=== PATIENT | male | born 1960 | race Caucasian/White ===

== ENCOUNTER 2022-09-25 01:53 | Day surgery (SDC) | payer BC, SELFPAY ==
[2022-09-18 08:31] VITALS: BMI 27.0
[2022-09-25 06:56] VITALS: BP 149/88; PULSE 80; RESP 18; TEMP 36.1; O2SAT 96; BMI 27.3
[2022-09-25] MEDS: LACTATED RINGERS 1,000 ML 150 ML IV CONT (07:06)
--- NOTE | 2022-09-25 07:31 | P.PNAN_ITS ---
Anes - Initial Pre Proc Eval Procedure: Operation Date: 09/25/22 08:00 Proposed Procedures p Screening Colonoscopy - Mann Murrieta MD Date/Time: 09/25/22 07:31 Surgeon: Mann Murrieta MD Pre Op Diagnosis: Neoplasm Screening Patient Data Age: 62 Gender: M Height: 1.85 m Weight: 94.1 kg Last Vital Signs Temp 97 F L 09/25/22 06:56 Pulse 80 09/25/22 06:56 Resp 18 09/25/22 06:56 BP 149/88 H 09/25/22 06:56 Pulse Ox 96 09/25/22 06:56 O2 Del Method Room Air 09/25/22 06:56 Allergies Allergy/AdvReac Type Severity Reaction Status Date / Time penicillin G Allergy Intermediate GROWTH ON Verified 09/18/22 08:27 TONGUE Penicillins Allergy Unknown white Verified 09/18/22 08:27 coating on tongue Home Medications Medication Instructions Recorded Confirmed Type atorvastatin 10 mg tablet See Rx Instructions .Route 04/16/22 09/18/22 Rx .COMPLEX #90 tabs metoprolol succinate 25 mg See Rx Instructions .Route 04/16/22 09/18/22 Rx tablet,extended release 24 hr .COMPLEX #90 tabs fluticasone propionate 50 See Rx Instructions .Route 08/04/22 09/18/22 Rx mcg/actuation nasal .COMPLEX #16 grams spray,suspension sodium,potassium,mag sulfates 17.5 See Rx Instructions PO .COMPLEX 09/16/22 Rx gram-3.13 gram-1.6 gram oral soln #354 mL (Suprep Bowel Prep Kit) alendronate 70 mg-cholecalciferol 70 tablet PO 09/18/22 History (vitamin D3) 2,800 unit tablet Patient hx anesthesia problems: none Family hx anesthesia problems: none Results Review: All pre-operative results and documents have been reviewed as part of the pre- operative evaluation. [facility] Surgical History Surgical History History of sinus surgery (~2015) Family History Family History Father Hypertension Family history of cardiovascular disease Family history of cardiac disorder Family history of congestive heart failure Social History Social History (Reviewed 10/13/22 @ 09:35 by Isamar Dominique [facility] Smoking status: Never smoker Alcohol intake: never Substance use: never Substance use type: marijuana Living arrangements: with family Spiritual care concerns: No Anes - Eval Final PreProcedure Day of Procedure 09/25/22 07:31 Patient weight: normal Heart: regular rate and rhythm Lungs: clear to auscultation Airway: Mallampati scale class II Neurological: alert and oriented Last oral intake: >/= 8 hours ASA classification: II Emergent: no Anesthetic plan: proceed Anesthesia type and monitoring: general GIVS and standard monitoring Results Review: All pre-operative results and documents have been reviewed as part of the pre- operative evaluation. Informed Consent: The patient's anesthetic plan and its attendant risks and benefits were discussed with the patient/family/POA. Questions were solicited and answers provided to the satisfaction of the patient/family/POA.
--- NOTE | 2022-09-25 07:46 | PM.HPGS ---
History of Present Illness History of Present Illness Consent: Risks, benefits, and alternatives have been discussed and questions answered. Patient agrees to proceed with procedure. Chief complaint: Neoplasm Screening Narrative: Tavo Nix is a 62 year old male Presents for screening colonoscopy. Patient's current weight appetite and bowel movements are normal. Patient denies abdominal pain. He has had no bleeding. Family history is noncontributory. Last exam 10 years ago was unremarkable. Review of Systems Review of Systems: Review of systems noncontributory. [facility] Surgical History Surgical History History of sinus surgery (~2016) Family History Family History Father Hypertension Family history of cardiovascular disease Family history of cardiac disorder Family history of congestive heart failure Social History Social History Smoking status: Never smoker Alcohol intake: never Substance use: never Substance use type: marijuana Living arrangements: with family Spiritual care concerns: No Meds Home Medications and Allergies Home Medications Medication Instructions Recorded Confirmed Type atorvastatin 10 mg tablet See Rx Instructions .Route 04/16/22 09/18/22 Rx .COMPLEX #90 tabs metoprolol succinate 25 mg See Rx Instructions .Route 04/16/22 09/18/22 Rx tablet,extended release 24 hr .COMPLEX #90 tabs fluticasone propionate 50 See Rx Instructions .Route 08/04/22 09/18/22 Rx mcg/actuation nasal .COMPLEX #16 grams spray,suspension sodium,potassium,mag sulfates 17.5 See Rx Instructions PO .COMPLEX 09/16/22 Rx gram-3.13 gram-1.6 gram oral soln #354 mL (Suprep Bowel Prep Kit) alendronate 70 mg-cholecalciferol 70 tablet PO 09/18/22 History (vitamin D3) 2,800 unit tablet Allergies Allergy/AdvReac Type Severity Reaction Status Date / Time penicillin G Allergy Intermediate GROWTH ON Verified 09/18/22 08:27 TONGUE Penicillins Allergy Unknown white Verified 09/18/22 08:27 coating on tongue Vital Signs Vital Signs - 24 hr 09/25/22 06:56 Temperature 97 F L Pulse Rate 80 Respiratory Rate 18 Blood Pressure 149/88 H Pulse Oximetry 96 Oxygen Delivery Room Air Exam Narrative: Physical exam reveals patient be alert. Vital signs stable. HEENT exam is unremarkable. Patient is anicteric. Lungs are clear to auscultation and percussion. Heart is without murmur or extra sounds. Abdomen bowel sounds are present soft nontender with no organomegaly. Digital external rectal exam is normal. Assessment and Plan Assessment and plan (1) Screening for colon cancer: Code(s): Z12.11 - Encounter for screening for malignant neoplasm of colon Status: Acute Assessment and Plan: Patient presents today for screening colonoscopy. Appears to be at average risk for colon polyps. Further recommendations will be given after endoscopy.
[2022-09-25 08:15] VITALS: BP 117/78; PULSE 68; RESP 15; O2SAT 95
[2022-09-25 08:25] VITALS: BP 118/74; PULSE 63; RESP 13; O2SAT 95
[2022-09-25 08:35] VITALS: BP 124/79; PULSE 68; RESP 19; O2SAT 97
== END 2022-09-25 08:50 | disposition home or self-care (01) ==
PROVIDERS: PCP Family Medicine; Visit Provider Internal Medicine Gastroenterology
PROC: 0DJD8ZZ Inspection of Lower Intestinal Tract, Via Natural or Artificial Opening Endoscopic (ICD-10-PCS; CPT 45378; principal; 2022-09-25 08:00)
DX: Z12.11 Encounter for screening for malignant neoplasm of colon (principal)
CPT/HCPCS: 45378; J2704; J7120

== ENCOUNTER 2024-02-19 08:03 | Emergency (ER) | payer MEDICARE, SELFPAY ==
[2024-02-19 08:11] VITALS: BP 156/92; PULSE 68; RESP 16; TEMP 36.4; O2SAT 97
--- NOTE | 2024-02-19 08:18 | ED.GENADULT ---
HPI - General Adult General Chief complaint: Ear Stated complaint: Ear Pain Source: patient, RN notes reviewed and old records reviewed Mode of arrival: ambulatory Limitations: no limitations History of Present Illness HPI narrative: 63-year-old male patient presents to [facility] complaint of right ear pain that started 2 days ago. Patient states also had less of hearing. Patient states was treated 3 weeks ago for sinusitis and right ear infection with Zithromax and prednisone. Patient states symptoms did improve but returned. Related Data Home Medications Medication Instructions Recorded Confirmed atorvastatin 10 mg tablet 10 mg PO DAILY 01/17/24 02/19/24 metoprolol succinate 25 mg 25 mg PO DAILY 01/17/24 02/19/24 tablet,extended release 24 hr Allergies Allergy/AdvReac Type Severity Reaction Status Date / Time penicillin G Allergy Intermediate GROWTH ON Verified 02/19/24 08:13 TONGUE Penicillins Allergy Unknown white Verified 02/19/24 08:13 coating on tongue Review of Systems Constitutional: Constitutional: Reports no additional constitutional complaints, Denies body ache(s), Denies chills, Denies fatigue, Denies fever(s) and Denies headache(s) Eyes: Eyes: Reports no additional eye complaints and Denies blurry vision ENT: Reports system reviewed and no additional complaints, except as documented, Denies vertigo, Denies dizziness, Denies ear discharge, Reports otalgia, Denies facial pain, Denies headache(s), Denies nasal congestion, Denies nasal discharge, Denies sinus pain, Denies sinus pressure and Denies sore throat Cardiovascular: Cardiovascular: Reports no additional cardiovascular complaints, Denies chest pain, Denies chest pain at rest, Denies rapid heart rate and Denies dyspnea Respiratory: Respiratory: Reports no additional respiratory complaints, Denies chest congestion, Denies cough, Denies pain on inspiration, Denies pain with cough and Denies dyspnea Gastrointestinal: Gastrointestinal: Denies abdominal pain, Denies diarrhea, Denies nausea and Denies vomiting Integumentary/Breasts: Skin/Breast: Denies rash Neurologic: Reports system reviewed and no additional complaints, except as documented, Denies vertigo, Denies dizziness and Denies headache(s) Endocrine: Endocrine: Denies fatigue PMFSH Surgical History Surgical History History of sinus surgery (~2016) Family History Family History Father Hypertension Family history of cardiovascular disease Family history of cardiac disorder Family history of congestive heart failure Social History Social History Smoking status: Never smoker Alcohol intake: never Substance use: never Substance use type: does not use Lack of Transportation: No Lack of Food: Never True Current Housing: I Have Housing Concerned About Future Housing: Decline to Answer Difficulty Paying Gas/Electric Bills: Decline to Answer Difficulty Paying for Meds: Decline to Answer Currently Unemployed: Decline to Answer Education: Decline to Answer Difficulty w/ Childcare or Family Care: Decline to Answer Living arrangements: with family Spiritual care concerns: No Comments At the time of my signature, I reviewed and agree with the nursing past medical, surgical, social, and family history. There is no relevant family history pertinent to the patient complaint. Exam Const: General: cooperative, healthy appearing, no acute distress and well nourished Nutritional Appearance: well nourished Orientation/consciousness: patient oriented x3 Limitations: no limitations HENMT: Head: normal to inspection and normocephalic Ears: external ears normal, TM normal on the left, EAC's normal, mastoids normal and TM abnormal bulging on the right and erythematous on the right Face/N
== END 2024-02-19 08:28 | disposition home or self-care (01) ==
PROVIDERS: Emergency Provider Registered Nurse; PCP Family Medicine
DX: H66.91 Otitis media, unspecified, right ear (principal)
CPT/HCPCS: 99213; G0463

== ENCOUNTER 2024-06-15 16:06 | Outpatient (CLI) | payer MEDICARE, SELFPAY ==
--- NOTE | ~2024-06-15 | XR_ITS ---
XR ankle RT min 3V DATE: 06/15/2024 16:24 INDICATION: Twisting injury to right ankle and foot TECHNIQUE: 4 views COMPARISON: None FINDINGS: There is generalized soft tissue swelling of the right ankle. No fracture or dislocation of the ankle or disruption of the ankle mortise is detected. Slight plantar calcaneal enthesopathy. IMPRESSION: Generalized soft tissue swelling; no ankle fracture or dislocation or disruption of the a nkle mortise Reviewed, dictated and finalized at location J. IMPRESSION: Generalized soft tissue swelling; no ankle fracture or dislocation or disruption of the ankle mortise
--- NOTE | ~2024-06-15 | XR_ITS ---
XR foot RT min 3V DATE: 06/15/2024 16:24 INDICATION: Right foot pain TECHNIQUE: 4 views COMPARISON: None FINDINGS: Ankle soft tissue swelling. Mild osteoarthritis of the first metatarsophalangeal joint. Slight plantar calcaneal enthesopathy. No fracture or dislocation, periosteal reaction or bone destruction is detected. IMPRESSION: Ankle soft tissue swelling No fracture or dislocation of the right foot Slight plantar calcaneal enthesopathy Mild osteoarthritis of first MTP joint Reviewed, dictated and finalized at location J.
== END 2024-06-15 16:07 ==
PROVIDERS: PCP Family Medicine; Visit Provider Nurse Practitioner
DX: M19.071 Primary osteoarthritis, right ankle and foot (principal)
CPT/HCPCS: 73610; 73630

== ENCOUNTER 2025-01-16 08:48 | Outpatient (CLI) | payer MEDICARE, SELFPAY ==
--- NOTE | ~2025-01-16 | US_ITS ---
EXAM: ABDOMEN ULTRASOUND HISTORY: R17 - Unspecified jaundice COMPARISON: None FINDINGS: LIVER: The liver is unremarkable in echogenicity and size measuring 16 cm in longitudinal dimension. The portal vein is patent demonstrating hepatopedal flow. The contour of the liver surface is smooth GALLBLADDER: No stones are identified within the gallbladder, which is otherwise unremarkable. No gallbladder wall thickening or pericholecystic fluid. BILE DUCTS: Common bile duct measures 3.1mm. No intrahepatic biliary ductal dilatation is appreciated on static imaging. PANCREAS: Limited evaluation of the pancreas secondary to overlying bowel gas IMPRESSION: Unremarkable sonographic evaluation of the liver, as detailed above. Limited evaluation of the pancreas secondary to overlying bowel gas. Reviewed, dictated and finalized at location A. OR LPN
--- NOTE | ~2025-01-16 | US_ITS ---
EXAM: Focused ultrasound examination of the soft tissues of the right groin EXAM: Focused ultrasound examination of the soft tissues of the left groin HISTORY: R19.09 - Other intra-abdominal and pelvic swelling, mass ... TECHNIQUE: Sonographic evaluation of the soft tissues of the bilateral groins were performed assessin g grayscale appearance and color Doppler flow. COMPARISON: None. FINDINGS: Sonographic evaluation of the soft tissues of the right groin demonstrate a 23mm fascial defect throu gh which echogenic tissue extrudes during Valsalva. Hernia sac was easily reducible. Sonographic evaluation of the soft tissues of the left groin demonstrate a 30mm fascial defect throug h which echogenic tissue extrudes during Valsalva. Hernia sac was easily reducible. Sonographic evaluation of the remainder of the soft tissues of the bilateral groins demonstrate benig n fibrofatty and fibromuscular elements without a cystic or solid lesion of concern. IMPRESSION: Bilateral inguinal hernias corresponding to the area of palpable concern, easily reducible, as detail ed above. Reviewed, dictated and finalized at location A. ING CREELER IMPRESSION: Bilateral inguinal hernias corresponding to the area of palpable concern, easil y reducible, as detailed above.
== END 2025-01-16 08:49 | disposition home or self-care (01) ==
LOC: GOSHIMG 08:48
PROVIDERS: PCP Nurse Practitioner; Visit Provider Nurse Practitioner
DX: R19.09 Other intra-abdominal and pelvic swelling, mass and lump (principal); R17 Unspecified jaundice; K40.20 Bilateral inguinal hernia, without obstruction or gangrene, not specified as recurrent
CPT/HCPCS: 76705; 76882

== ENCOUNTER 2025-01-16 10:48 | Emergency (ER) | payer MEDICARE, SELFPAY ==
[2025-01-16 11:04] VITALS: BP 137/85; PULSE 70; RESP 16; TEMP 36.4; O2SAT 97
--- NOTE | 2025-01-16 11:24 | ED_ITS ---
HPI - Wound/Laceration General Chief Complaint: Wound/Laceration Stated Complaint: Cut Finger Source: patient Mode of arrival: ambulatory Limitations: no limitations History of Present Illness HPI narrative: 64 y/o male presented for c/o right right finger laceration. States he was cleaning a thin wine glass when it broke and cut the finger. Pt applied pressure to the site. Denies decreased ROM to the digit. Tetanus utd. Related Data Home Medications ?Medication ?Instructions ?Recorded ?Confirmed ?Last Taken ?Type atorvastatin 10 mg tablet 10 mg PO DAILY 01/11/25 01/11/25 Unknown History metoprolol succinate 25 mg 25 mg PO DAILY 01/11/25 01/11/25 Unknown History tablet,extended release 24 hr Allergies Allergy/AdvReac Type Severity Reaction Status Date / Time penicillin G Allergy Intermediate GROWTH ON Verified 01/16/25 11:14 TONGUE Penicillins Allergy Unknown white Verified 01/16/25 11:14 coating on tongue Review of Systems Review of Systems: CONSTITUTIONAL: Denies body aches, fever, chills, or sweats. CARDIOVASCULAR: Denies chest pain, palpitations, or edema. RESPIRATORY: Denies cough or dyspnea. GASTROINTESTINAL: Denies abdominal pain, nausea, vomiting, or diarrhea. SKIN: per HPI MUSCULOSKELETAL: Denies back pain, joint pain, or myalgia. NEUROLOGIC: Denies numbness, tingling, or weakness. [facility] Surgical History Surgical History History of sinus surgery (~2016) Family History Family History Father Hypertension Family history of cardiovascular disease Family history of cardiac disorder Family history of congestive heart failure Social History Social History Smoking status: Never smoker Alcohol intake: never Substance use: never Substance use type: does not use Lack of Transportation: No Lack of Food: Never True Current Housing: I Have Housing Concerned About Future Housing: Decline to Answer Difficulty Paying Gas/Electric Bills: Decline to Answer Difficulty Paying for Meds: Decline to Answer Currently Unemployed: Decline to Answer Education: Decline to Answer Difficulty w/ Childcare or Family Care: Decline to Answer Living arrangements: with family Spiritual care concerns: No Comments At time of signature, I have reviewed and agree with nursing past medical, surgical, social and family history unless otherwise noted. Please see nursing chart for further information. There is no relevant family history pertinent to the presenting complaint Exam Narrative: GENERAL: Well-appearing HEAD: Normocephalic, atraumatic. EYES: conjunctivae clear, and EOMI. ENT: Mucous membranes moist. Oropharynx without edema, erythema or lesions. NECK: Supple. No lymphadenopathy CHEST: Clear to auscultation. HEART: Regular rate and rhythm. SKIN: Warm, dry. right 4th digit middle phalanx with 2cm irregular laceration, CMS intact. NEURO: Alert and oriented x3. Course Course Emergency Course: Patient is aware of diagnosis, understands and agrees to treatment plan. Anticipatory guidance given. Patient agrees to follow-up as directed and is aware of reasons to seek care at the emergency department. Portions of this record may have been created with voice recognition software Level of Care: Express Care Visit Vital Signs Vital signs: Vital Signs Temperature 97.5 F L 01/16/25 11:04 Pulse Rate 70 01/16/25 11:04 Respiratory Rate 16 01/16/25 11:04 Blood Pressure 137/85 01/16/25 11:04 Pulse Oximetry 97 01/16/25 11:04 Temperature 97.5 F L 01/16/25 11:04 Pulse Rate 70 01/16/25 11:04 Respiratory Rate 16 01/16/25 11:04 Blood Pressure 137/85 01/16/25 11:04 Pulse Oximetry 97 01/16/25 11:04 Reviewed Procedures Laceration right 4th digit: Date: 01/16/25 Size (cm): 2 Description: irregular and clean Depth: simple, single layer Local Anesthetic: lidocaine 1% Pre-repair: irrigated ====== Skin Level ====== Skin layer closed with: nylon Size (cm): 5-0 Number of sutures: 7 Technique: simple, interrupted ====== Subcutaneous Layer ====== ====== Muscle Layer ====== ====== Tendon Layer ====== Dressing: The procedure and its alternatives were reviewed with patient. Risks were reviewed with patient including infection and damage to nearby structures. Patient provided verbal informed consent. The patient was positioned appropriately. Sterile drapes applied to maintain sterile field. Wound was explored for abnormalities including infection and foreign bodies. Sutures placed with wound edges approximated. Patient tolerated well, no complications. Dressing applied per RN. Discharge Plan Discharge Clinical Impression: Finger laceration Patient Disposition: Home, Self-Care Condition: Stable Instructions: Antibiotic Form, Care For Your Stitches (ED) Additional Instructions: Your sutures need to be removed in 7-10 days. You can return to the clinic or contact your pcp for removal. Wear the dressing that has been applied for the first 24 hours to allow a scab to start forming. After this, you may remove and wash as normal with soap and water. Do NOT wash with peroxide or alcohol. Take tylenol or ibuprofen at home for pain Follow up with your PCP Go to the ER with any signs of infection such as redness, swelling, increased pain, or drainage. Patient Language: Georgian Prescriptions: New cephalexin 500 mg capsule 500 mg PO Q12H 5 Days Qty: 10 0RF No Action atorvastatin 10 mg tablet 10 mg PO DAILY metoprolol succinate 25 mg tablet extended release 24 hr 25 mg PO DAILY fluticasone propionate 50 mcg/actuation spray,suspension See Rx Instructions .ROUTE .COMPLEX Qty: 16 1RF Dose Instruction: ADMINISTER 2 SPRAYS IN EACH NOSTRIL DAILY Rx Instructions: ADMINISTER 2 SPRAYS IN EACH NOSTRIL DAILY Follow-up/Referrals: PHYSICIAN,CORPORATE REAL ESTATE SPECIALIST [Primary Care Provider] -
== END 2025-01-16 12:19 | disposition home or self-care (01) ==
PROVIDERS: Emergency Provider Nurse Practitioner Family
DX: S61.214A Laceration without foreign body of right ring finger without damage to nail, initial encounter (principal); W25.XXXA Contact with sharp glass, initial encounter; Y93.G1 Activity, food preparation and clean up; I10 Essential (primary) hypertension; E78.00 Pure hypercholesterolemia, unspecified
CPT/HCPCS: 12001; 99213; G0463; J2003

== ENCOUNTER 2025-01-25 08:02 | Emergency (ER) | payer MEDICARE, SELFPAY ==
--- NOTE | 2025-01-25 08:05 | ED.WOUNDLAC ---
HPI - Wound/Laceration General Chief Complaint: Wound/Laceration Stated Complaint: Stitches Removal Source: patient and RN notes reviewed Mode of arrival: ambulatory Limitations: no limitations History of Present Illness HPI narrative: Patient is a 64-year-old male who presents to the [facility] with request for suture removal. Patient states that he had 7 sutures placed last Wednesday after cutting his right ring finger while cleaning a wine glass. Patient states that one of the sutures fell off in the bandaid this morning, so he only has 6 remaining that need to be removed. He denies any signs of infection. Cap refill is normal. Distal motor status intact. Good wound healing appreciated. Related Data Home Medications ?Medication ?Instructions ?Recorded ?Confirmed ?Last Taken ?Type atorvastatin 10 mg tablet 10 mg PO DAILY 01/11/25 01/25/25 Unknown History metoprolol succinate 25 mg 25 mg PO DAILY 01/11/25 01/25/25 Unknown History tablet,extended release 24 hr Allergies Allergy/AdvReac Type Severity Reaction Status Date / Time penicillin G Allergy Intermediate GROWTH ON Verified 01/25/25 08:19 TONGUE Penicillins Allergy Unknown white Verified 01/25/25 08:19 coating on tongue Review of Systems Review of Systems: CONSTITUTIONAL: Denies fever, chills, or sweats. EYES: Denies visual changes, redness, or discharge. ENT: Denies otalgia and sore throat CARDIOVASCULAR: Denies chest pain, palpitations, or edema. RESPIRATORY: Denies cough or dyspnea. GASTROINTESTINAL: Denies abdominal pain, nausea, vomiting, or diarrhea. GENITOURINARY: Denies dysuria or hematuria. SKIN: Healing laceration to the right ring finger. MUSCULOSKELETAL: Denies back pain, joint pain, or myalgia. NEUROLOGIC: Denies headache, numbness, or weakness. Pertinent positives per HPI. [facility] Surgical History Surgical History History of sinus surgery (~2016) Family History Family History Father Hypertension Family history of cardiovascular disease Family history of cardiac disorder Family history of congestive heart failure Social History Social History Smoking status: Never smoker Alcohol intake: never Substance use: never Substance use type: does not use Lack of Transportation: No Lack of Food: Never True Current Housing: I Have Housing Concerned About Future Housing: Decline to Answer Difficulty Paying Gas/Electric Bills: Decline to Answer Difficulty Paying for Meds: Decline to Answer Currently Unemployed: Decline to Answer Education: Decline to Answer Difficulty w/ Childcare or Family Care: Decline to Answer Living arrangements: with family Spiritual care concerns: No Comments At the time of my signature, I reviewed and agree with the nursing past medical, surgical, social, and family history. There is no relevant family history pertinent to the patient complaint. Exam Narrative: GENERAL: This is a well-nourished, well-developed patient, in no apparent distress. HEAD: normocephalic, atraumatic. EYES: PERRL. Sclera clear/white. Vision is grossly intact. EARS: External ears normal, auditory canals clear and without drainage, TMs normal without perforation. Hearing grossly intact. NOSE: External nose normal with no obvious nasal discharge, nares without redness, no rhinorrhea. THROAT: Mucous membranes moist, posterior pharynx clear. NECK: Neck supple, non-tender without lymphadenopathy, masses or thyromegaly. CARDIOVASCULAR: Regular rate and rhythm without murmurs, gallops, or rubs. RESPIRATORY: Clear to auscultation. Breath sounds equal bilaterally. No wheezes, rales, or rhonchi. GASTROINTESTINAL: Abdomen soft, non-tender, nondistended. Bowel sounds are active. No hepato-splenomegaly, or palpable masses. No guarding. SKIN: Healing 2 cm laceration noted to the right ring finger with no signs of infection. No erythema. No drainage. NEURO: awake, alert, and oriented to person, place and time. There were no obvious focal neurologic abnormalities. Course Course Level of Care: Express Care Visit Vital Signs Vital signs: Vital Signs Temperature 97.2 F L 01/25/25 08:23 Pulse Rate 64 01/25/25 08:23 Respiratory Rate 16 01/25/25 08:23 Blood Pressure 139/89 01/25/25 08:23 Pulse Oximetry 97 01/25/25 08:23 Temperature 97.2 F L 01/25/25 08:23 Pulse Rate 64 01/25/25 08:23 Respiratory Rate 16 01/25/25 08:23 Blood Pressure 139/89 01/25/25 08:23 Pulse Oximetry 97 01/25/25 08:23 Reviewed Procedures Other Procedure Procedure 1: Other Procedure: 6 sutures removed from 2 cm laceration to the right ring finger. Good wound healing. No erythema. No drainage. MDM - Wound/Laceration MDM Narrative Medical decision making narrative: 6 sutures removed. Patient educated on wound care instructions. Advised to follow-up with PCP as needed. Differential Diagnosis Differential diagnosis: Likely laceration, abrasion and avulsion of skin Critical Care Time Critical Care Time Critical Care Time: No Discharge Plan Discharge Clinical Impression: Encounter for removal of sutures Patient Disposition: Home, Self-Care Condition: Stable Instructions: Stitches Removal (ED) Additional Instructions: Keep wound clean and dry. Continue to monitor for signs of infection, including redness around the wound or purulent drainage. Follow up with primary care physician as needed. Patient Language: American Prescriptions: No Action cephalexin 500 mg capsule 500 mg PO Q12H 5 Days Qty: 10 0RF atorvastatin 10 mg tablet 10 mg PO DAILY metoprolol succinate 25 mg tablet extended release 24 hr 25 mg PO DAILY fluticasone propionate 50 mcg/actuation spray,suspension See Rx Instructions .ROUTE .COMPLEX Qty: 16 1RF Dose Instruction: ADMINISTER 2 SPRAYS IN EACH NOSTRIL DAILY Rx Instructions: ADMINISTER 2 SPRAYS IN EACH NOSTRIL DAILY Follow-up/Referrals: Bel Valencia NP-C [Primary Care Provider] - Time of Disposition: 08:26
[2025-01-25 08:23] VITALS: BP 139/89; PULSE 64; RESP 16; TEMP 36.2; O2SAT 97
== END 2025-01-25 08:29 | disposition home or self-care (01) ==
PROVIDERS: Emergency Provider Nurse Practitioner; PCP Nurse Practitioner
DX: S61.214D Laceration without foreign body of right ring finger without damage to nail, subsequent encounter (principal); W25.XXXD Contact with sharp glass, subsequent encounter
CPT/HCPCS: 99211; G0463